=== PATIENT | female | born 1980 | race Caucasian/White ===

== ENCOUNTER 2022-07-20 08:26 | Emergency (ER) | payer BC ==
--- NOTE | 2022-07-20 08:31 | ERPHSYRPT ---
- History of Present Illness Time Seen by Provider: 07/20/22 08:30 Source: patient Exam Limitations: no limitations Physician History: This is a 42-year-old white female who has had a history of recurrent sinusitis in the past and in the last few days she has had sinus pressure as well as pain in the left ear. Patient was placed on Augmentin yesterday and her symptoms are not any better in fact there is some evidence of left side facial swelling. She does not have a rash. She has no breathing concerns. She does not have a swollen tongue or sensation of swelling in her throat. Patient is diabetic and she felt that maybe she has had allergic reaction. The area does not itch. Timing/Duration: day(s) Quality: other (Pressure sensation left ear and left sinuses) Severity: mild Location: face Possible Causes: no cause identified Associated Symptoms: denies symptoms Allergies/Adverse Reactions: semaglutide [From Ozempic] Allergy (Verified 07/20/22 08:31) Travel Risk - International Travel Have you traveled outside of the country in past 3 weeks: No - Coronavirus Screening Are you exhibiting any of the following symptoms?: No Close contact with a COVID-19 positive Pt in past 14-21 Days: No - Review of Systems Constitutional: No Symptoms Eyes: No Symptoms Ears, Nose, & Throat: Ear Pain (Left ear pressure but not pain), Other (Sinus pressure.) Respiratory: No Symptoms Cardiac: No Symptoms Abdominal/Gastrointestinal: No Symptoms Genitourinary Symptoms: No Symptoms Musculoskeletal: No Symptoms Skin: No Symptoms Neurological: No Symptoms Psychological: No Symptoms Endocrine: No Symptoms Hematologic/Lymphatic: No Symptoms Immunological/Allergic: No Symptoms All Other Systems: Reviewed and Negative - Past Medical History Pertinent Past Medical History: Yes - Past Surgical History Past Surgical History: Yes - Physical Exam General Appearance: no apparent distress, alert, anxiety, obese Eye Exam: PERRL/EOMI, eyes nml inspection Ears, Nose, Throat Exam: normal ENT inspection, moist mucous membranes Neck Exam: normal inspection, non-tender, supple, full range of motion Respiratory Exam: normal breath sounds, lungs clear, airway intact, No chest tenderness, No respiratory distress Cardiovascular Exam: regular rate/rhythm, normal heart sounds, normal peripheral pulses Gastrointestinal/Abdomen Exam: No tenderness Pelvic Exam: not done Rectal Exam: not done Back Exam: normal inspection, normal range of motion, No CVA tenderness, No vertebral tenderness Extremity Exam: normal inspection, normal range of motion, pelvis stable Neurologic Exam: alert, oriented x 3, cooperative, 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, normal mood/affect, nml cerebellar function, nml station & gait, sensation nml Skin Exam: normal color, warm, dry Lymphatic Exam: No adenopathy SpO2 Interpretation: normal O2 Delivery: Room Air - Course Nursing assessment & vital signs reviewed: Yes Ordered Tests: Medication Summary Generic Name Dose Route Start Last Admin Trade Name Jaycee PRN Reason Stop Dose Admin Diphenhydramine HCl 50 mg 07/20/22 08:35 Diphenhydramine Hcl 25 Mg Capsule PO 07/20/22 08:36 STAT ONE - Progress Progress: unchanged Counseled pt/family regarding: diagnosis, need for follow-up, rad results - Departure Departure Disposition: Home Clinical Impression: Medication reaction, Sinusitis Condition: Stable Critical Care Time: No Additional Instructions: Stop your Augmentin. Take the Z-Karl as prescribed. Monitor your blood sugar closely while taking the prednisone/steroid. Follow-up with your primary care physician for further evaluation and management. Prescriptions: Prednisone 10 mg [Deltasone 10 mg] 10 mg PO TID #12 tablet Azithromycin 250 mg [Zithromax 250 MG TABLET] 250 mg PO ZPACK #6 tablet
[2022-07-20] MEDS ORDERED: solu-MEDROL 125 MG, Sterile H2O 10 ml 2 ML IM ONE ×2 (08:35)
[2022-07-20] MEDS ORDERED: BENADRYL 25 MG CAPSULE PO ONE (08:35)
[2022-07-20] MEDS ORDERED: Pepcid 20 MG PO ONE (08:35)
[2022-07-20 08:40] VITALS: BP 165/133
[2022-07-20] MEDS ORDERED: Sterile H2O 10 ml IJ ONE (08:43)
[2022-07-20] MEDS ORDERED: BENADRYL 25 MG CAPSULE ONE (08:43)
[2022-07-20] MEDS ORDERED: solu-MEDROL ONE (08:43)
[2022-07-20] MEDS ORDERED: Pepcid 20 MG ONE (08:43)
[2022-07-20 09:04] VITALS: PULSE 88; O2SAT 98
== END 2022-07-20 09:00 | disposition home or self-care (01) ==
LOC: ED 08:26
DX: J32.9 Chronic sinusitis, unspecified (principal); T36.0X5A Adverse effect of penicillins, initial encounter; T36.1X5A Adverse effect of cephalosporins and other beta-lactam antibiotics, initial encounter; R51.9 Headache, unspecified; H92.02 Otalgia, left ear; E11.9 Type 2 diabetes mellitus without complications; Z79.52 Long term (current) use of systemic steroids
CPT/HCPCS: 96372; 99283; J2930; A9270-GY